=== PATIENT | female | born 1945 | race Caucasian/White ===

== ENCOUNTER 2017-10-27 08:22 | Outpatient (RCR) | payer MEDICARE, SELFPAY ==
[2017-10-13 15:51] LABS: Prothrombin Time Fingerstick 22.5 SEC (11.9-14.4)
== END 2017-10-27 08:40 | disposition home or self-care (01) ==
LOC: LAB 08:22
PROVIDERS: Family Provider Family Medicine; PCP Family Medicine; Visit Provider Family Medicine
DX: I48.2 Chronic atrial fibrillation (principal)
CPT/HCPCS: 36416; 85610

== ENCOUNTER 2017-11-17 14:26 | Outpatient (RCR) | payer MEDICARE, SELFPAY ==
[2017-11-17 14:42] LABS: Prothrombin Time Fingerstick 28.5 SEC (11.9-14.4)
== END 2017-11-17 15:00 | disposition home or self-care (01) ==
LOC: LAB 14:26
PROVIDERS: Family Provider Family Medicine; PCP Family Medicine; Visit Provider Family Medicine
DX: I48.2 Chronic atrial fibrillation (principal)
CPT/HCPCS: 36416; 85610

== ENCOUNTER 2017-12-15 14:05 | Outpatient (RCR) | payer MEDICARE, SELFPAY ==
[2017-12-15 14:21] LABS: Prothrombin Time Fingerstick 30.1 SEC (11.9-14.4)
== END 2017-12-15 15:00 | disposition home or self-care (01) ==
LOC: LAB 14:05
PROVIDERS: Family Provider Family Medicine; PCP Family Medicine; Visit Provider Family Medicine
DX: I48.2 Chronic atrial fibrillation (principal)
CPT/HCPCS: 36416; 85610

== ENCOUNTER 2018-01-12 12:33 | Outpatient (RCR) | payer MEDICARE, SELFPAY ==
[2018-01-12 12:50] LABS: Prothrombin Time Fingerstick 29.5 SEC (11.9-14.4)
== END 2018-01-12 13:00 | disposition home or self-care (01) ==
LOC: LAB 12:33
PROVIDERS: Family Provider Family Medicine; PCP Family Medicine; Visit Provider Family Medicine
DX: I48.2 Chronic atrial fibrillation (principal)
CPT/HCPCS: 36416; 85610

== ENCOUNTER 2018-02-09 12:54 | Outpatient (RCR) | payer MEDICARE, SELFPAY ==
[2018-02-09 13:16] LABS: Prothrombin Time Fingerstick 30.6 SEC (11.9-14.4)
== END 2018-02-09 13:00 | disposition home or self-care (01) ==
LOC: LAB 12:54
PROVIDERS: Family Provider Family Medicine; PCP Family Medicine; Visit Provider Family Medicine
DX: I48.2 Chronic atrial fibrillation (principal)
CPT/HCPCS: 36416; 85610

== ENCOUNTER 2018-03-09 09:27 | Outpatient (RCR) | payer MEDICARE, SELFPAY ==
[2018-03-09 09:46] LABS: Prothrombin Time Fingerstick 31.2 SEC (11.9-14.4)
== END 2018-03-09 10:00 | disposition home or self-care (01) ==
LOC: LAB 09:27
PROVIDERS: Family Provider Family Medicine; PCP Family Medicine; Visit Provider Family Medicine
DX: I48.2 Chronic atrial fibrillation (principal)
CPT/HCPCS: 36416; 85610